=== PATIENT | male | born 1945 | race Caucasian/White ===

== ENCOUNTER 2019-07-24 14:19 | Outpatient (CLI) | payer OTHER, SELFPAY ==
[2019-07-24 14:54] LABS: Add Urine Microscopic? YES; Appearance Urine Clear (Clear); Bacteria Urine Trace /hpf; Bilirubin Urine Negative (Negative); Blood Urine Negative (Negative); Calcium Oxalate Crystals Urine Present /hpf; Color Urine Yellow (Yellow); Glucose Urine UA 1+ mg/dL (Negative); Ketones Urine Trace mg/dL (Negative); Leukocyte Esterase Ur Negative LEU/UL (Negative); Mucus Urine Moderate /lpf; Nitrate Urine Negative (Negative); Protein Urine 1+ mg/dL (Negative); Specific Grav Ur 1.026 (1.001-1.035); Squamous Epithelial Cell Urine Few /hpf (Few); Urobilinogen Urine Negative mg/dL (<2.0)
== END 2019-07-24 14:20 | disposition home or self-care (01) ==
PROVIDERS: PCP Internal Medicine; Visit Provider Internal Medicine
DX: M54.9 Dorsalgia, unspecified (principal)
CPT/HCPCS: 81001; 87086; 87088

== ENCOUNTER 2019-08-26 10:04 | Inpatient (IN) | payer OTHER, SELFPAY ==
[2019-08-26] VITALS (7 sets, daily range): BP systolic 82–126; BP diastolic 50–84; PULSE 92–120; RESP 16–26; TEMP 36.4–36.7; O2SAT 92–100; BMI 21.7
--- NOTE | ~2019-08-26 | CT_ITS ---
EXAMINATION: CT brain wo con DATE: 08/26/2019 11:04 INDICATION: Complaints of weakness and fall. Altered mental status. Confusion. TECHNIQUE: Computed tomography (CT) of the head was performed without intravenous contrast. The dose- length product was 605.33 mGy-cm. The mA was adjusted according to patient size. Iterative reconstruc tion technique was employed. COMPARISON: None FINDINGS: There is a fluid attenuation mass left middle cranial fossa measuring 4.4 x 3.3 cm, consist ent with arachnoid cyst. There is mass effect on the temporal lobe. Mild generalized atrophy. There a re scattered mild periventricular and subcortical white matter changes, most likely related to small vessel ischemic disease (microangiopathy). No acute intracranial hemorrhage, infarction, mass or mass effect. IMPRESSION: 1. No acute intracranial abnormality. 2: Fluid attenuation mass measuring 4.4 x 3.3 cm left middle cranial fossa, consistent with arachnoid cyst. 3: Chronic age-related findings. Reviewed, dictated and finalized at location A. IMPRESSION: 1. No acute intracranial abnormality. 2: Fluid attenuation mass measuring 4.4 x 3.3 cm left middle cranial fossa, con sistent with arachnoid cyst. 3: Chronic age-related findings.
--- NOTE | ~2019-08-26 | XR_ITS ---
XR chest 2V 08/26/2019 11:07 Indication: Status post fall. Weakness. Procedure: 2 view chest Comparison: 09/06/2015 Findings: Bibasilar airspace disease, compatible with pneumonia. Small pleural effusions. No edema or pneumothorax. No acute osseous abnormality. Impression: 1: Bibasilar airspace disease, consistent with pneumonia. Reviewed, dictated and finalized at location A. Impression: 1: Bibasilar airspace disease, consistent with pneumonia.
--- NOTE | ~2019-08-26 | XR_ITS ---
MODIFIED ESOPHAGRAM HISTORY: Dysphagia. TECHNIQUE: Modified barium esophagram was performed on 08/27/2019. I administered fluoroscopy and perfo rmed the exam with speech pathologist. Patient was seated for lateral fluoroscopic imaging for inges tion of thin liquids, pudding, solids and quantified amounts, followed by thin liquids in uncontrolle d amounts. This was recorded on tape. A single fluoroscopic spot image was also recorded. The DAP for this procedure was 0.80 Gycm2. The amount of fluoroscopy time used during this procedure was 1.2 min utes. FINDINGS: Oral stage: Adequate function. Pharyngeal stage: Pharyngeal dysphagia with laryngeal penetration and aspiration below the vocal cord s ineffectual attempted clearance. Cervical/esophageal stage: Adequate function. IMPRESSION: Residual dysphagia with laryngeal penetration and moderate aspiration. Please correlate with speech pathologist findings and specific feeding recommendations. Reviewed, dictated and finalized at location A. IMPRESSION: Residual dysphagia with laryngeal penetration and moderate aspirati on. Please correlate with speech pathologist findings and specific feeding rec ommendations.
--- NOTE | ~2019-08-26 | MR_ITS ---
EXAMINATION: MR brain/brain stem wo/w con DATE: 08/28/2019 08:27 INDICATION: Arachnoid cyst. TECHNIQUE: Magnetic resonance imaging (MRI) of the brain and brainstem was performed without and with 12 mL Multihance intravenous contrast. Sequences included sagittal and axial T1-weighted SE, axial d iffusion-weighted FS SE, axial T2*-weighted GRE, axial T2-weighted FLAIR, and axial T2-weighted FSE. Postcontrast axial, sagittal and coronal T1-weighted SE was obtained. Apparent diffusion coefficient (ADC) maps were created. COMPARISON: Head CT dated 08/26/2019 FINDINGS: There are no areas of restricted diffusion to suggest acute infarction. 3.4 x 3.2 x 2.4 cm arachnoid cyst in the left middle cranial fossa which exerts mass effect upon the left temporal lobe. The fluid in the cyst follows CSF signal. No intracranial hemorrhage or other abnormal intracranial mass lesio n. There are scattered areas of nonspecific increased T2-weighted signal intensity in the cerebral wh ite matter, predominantly involving the deep and periventricular white matter. There are no intrapare nchymal signal abnormalities seen on the other pulse sequences. Symmetric prominence of the sulci and ventricles consistent with mild age-appropriate diffuse cerebral volume loss. There are no abnormal extra-axial fluid collections. Flow voids are seen in the cerebral arteries on the T2-weighted sequen siddhartha consistent with their expected patency. Small right mastoid effusion. Changes of bilateral intrao cular lens replacement. Visualized orbits and soft tissues are unremarkable. There are no areas of a bnormal enhancement on the post contrast images. IMPRESSION: 1. No acute intracranial process. 2. Arachnoid cyst in the left middle cranial fossa. 2. Age-related changes including mild diffuse volume loss and mild periventricular white matter T2 hy perintensity consistent with chronic small vessel ischemic disease. Reviewed, dictated and finalized at location A. IMPRESSION: 1. No acute intracranial process. 2. Arachnoid cyst in the left middle cranial fossa. 2. Age-related changes including mild diffuse volume loss and mild periventricu lar white matter T2 hyperintensity consistent with chronic small vessel ischemi c disease.
--- NOTE | ~2019-08-26 | XR_ITS ---
XR chest 1V portable DATE: 08/28/2019 11:04 INDICATION: Oxygen desaturation TECHNIQUE: Portable upright AP views on 08/28/2019 at 1107 hours COMPARISON: 08/26/2019 AP and lateral chest FINDINGS: There are bilateral lower lung infiltrates and/or atelectasis, left greater than right, inc reased since 08/26/2019. Small pleural effusions cannot be excluded. There is mild pulmonary vascular congestion and redistrib ution and mild prominence of the minor fissure, suggesting congestive changes. IMPRESSION: Increased bilateral lower lung atelectasis and/or infiltrate, left greater than right Mild congestive changes since 08/26/2019 Reviewed, dictated and finalized at location A.
--- NOTE | 2019-08-26 10:09 | ECG_ITS ---
Measurements Intervals [place] Rate: 115 P: MO: 0 QRS: -26 QRSD: 162 T: 82 QT: 372 QTc: 515 Interpretive Statements ATRIAL FLUTTER/TACHYCARDIA WITH RAPID VENTRICULAR RESPONSE LEFT BUNDLE BRANCH BLOCK BASELINE WANDER- I, II, AVR ABNORMAL ECG Electronically Signed On 08-26-2019 10:35:06 CDT by Richie Alfonso D.O.
--- NOTE | 2019-08-26 10:30 | ED.WEAKNESS ---
HPI - Weakness General Chief complaint: Weakness Stated complaint: FALL Time Seen by Provider: 08/26/19 10:07 History of Present Illness HPI Narrative: Patient is a 74-year-old male with history of muscular dystrophy who presents to the ER with weakness and a fall. Patient attempted to get out of bed last night and was too weak to stand and fell to the floor striking his head. Unsure if he lost consciousness. Family member did not hear him fall him when they checked on him this morning they found him on the ground. He had been lying there all night. He is alert and oriented x3 but has confusion about details of events and what is been occurring over the last few days which family reports is abnormal. Patient typically has home health is been helping him with moving around and rehab but they have stopped coming and so he is stopped doing rehabilitation. For member has concerns that they may be unable to care for him at home at this point. Patient's physical activity is limited to walking from his bed to a chair. Related Data Home Medications Medication Instructions Recorded Confirmed aspirin 81 mg tablet,delayed 81 mg PO DAILY 03/12/19 release cholecalciferol (vitamin D3) 25 1,000 unit PO DAILY 03/12/19 mcg (1,000 unit) capsule cyanocobalamin (vitamin B-12) 1,000 mcg PO BID cap 03/12/19 1,000 mcg capsule gabapentin 100 mg capsule 200 mg PO TID cap 03/12/19 krill 1 cap PO DAILY 03/12/19 hur-pj-3-czm-pbj-qlwruvnhhufen 300 mg-90 mg-24 mg-50 mg capsule latanoprost 0.005 % eye drops 1 drop EACH EYE QPM 03/12/19 naproxen sodium 220 mg capsule 220 mg PO Q12H 03/12/19 carboxymethylcellulose sodium 08/26/19 [Refresh Tears] dextran 70-hypromellose [GenTeal drp OPHTHALMIC (EYE) 08/26/19 Tears Mild] saw palmetto fruit mg 08/26/19 timolol maleate 08/26/19 vitamins A,C,Z-lbpn-xhllag tablet 08/26/19 [PreserVision AREDS] Allergies Allergy/AdvReac Type Severity Reaction Status Date / Time No Known Allergies Allergy Verified 08/26/19 10:24 Review of Systems Review of Systems: All systems reviewed & are unremarkable except as noted in HPI and below Constitutional: Constitutional: Denies chills, Reports fatigue, Denies fever(s) and Reports weakness ENT: Denies dizziness, Denies nasal congestion and Denies sore throat Cardiovascular: Cardiovascular: Denies chest pain and Denies rapid heart rate Respiratory: Respiratory: Denies chest congestion, Denies cough and Denies dyspnea Gastrointestinal: Gastrointestinal: Denies abdominal pain, Denies nausea and Denies vomiting Musculoskeletal: Musculoskeletal: Reports back pain (Chronic) Integumentary/Breasts: Comments: Abrasions to the knees bilaterally. Neurologic: Reports confusion, Reports dizziness, Reports headache(s), Denies focal weakness and Denies numbness [facility] Past Medical History Medical History (Updated 08/26/19 @ 14:40 by Montrell Chan MD) Biliary stenosis Calculus of gallbladder without cholecystitis without obstruction Hypernatremia Macular degeneration, age related, exudative Mixed hyperlipidemia Myotonic muscular dystrophy Nephrolithiasis Scoliosis of lumbar spine Surgical History Surgical History (Updated 08/26/19 @ 10:36 by Montrell Chan MD) H/O colonoscopy History of esophagogastroduodenoscopy (EGD) Social History Social History (Reviewed 04/28/19 @ 12:53 by Ivy Castillo [facility]) Smoking status: Former smoker Alcohol intake: never Exam Narrative: Exam Narrative: GENERAL: Chronically ill-appearing and frail, and in no acute distress. HEAD: Normocephalic, atraumatic. EYES: PERRL and EOMI. bruising/abrasion around the right periorbital region without tenderness. ENT: Mucous membranes moist. CHEST: Clear to auscultation. No respiratory distress. HEART: Tachycardic and regular. Normal peripheral pulses. ABDOMEN: Soft, nontender, nondistended. EXTREMITIES: Normal range of motion. Normal st
[2019-08-26 10:34] LABS: Basophils Percent Auto 0.6 % (0.2-1.2); Eosinophils Percent Auto 0.4 % (0-4.4); Hematocrit 40.2 % (42.0-52.0); Hemoglobin 12.6 g/dL (14.0-18.0); Immature Granulocyte Absolute 0.02 K/mm3 (0.00-0.031); Immature Granulocyte Percent A 0.3 % (0-0.5); Lymphocytes Absolute Auto 0.71 K/mm3 (0.9-3.2); Lymphocytes Percent Auto 9.8 % (18.3-44.2); Mean Corpuscular HGB Conc 31.3 g/dl (32-36); Mean Corpuscular Hemoglobin 31.3 pg (26-34); Mean Platelet Volume 11.2 fl (7.4-10.4); Monocytes Absolute Auto 0.6 K/mm3 (0.1-0.6); Monocytes Percent Auto 8.1 % (2.6-8.5); Neutrophils Absolute Auto 5.9 K/mm3 (1.3-6.7); Neutrophils Percent Auto 80.8 % (45.5-73.1); Platelet Count Result 158 k/mm3 (150-375); Red Blood Count 4.02 M/mm3 (4.6-6.20); Red Cell Distribution Width 14.1 % (11.5-14.5); White Blood Count 7.3 K/mm3 (4.5-10.0)
[2019-08-26 10:44] LABS: Alanine Aminotransferase 50 U/L (4-50); Albumin Level 3.5 g/dL (3.5-5.1); Alkaline Phosphatase 207 U/L (38-126); Aspartate Amino Transferase 73 U/L (17-59); Bilirubin,Total 0.6 mg/dL (0.2-1.3); Blood Urea Nitrogen 14 mg/dL (9-20); Calcium 9.7 mg/dL (8.4-10.2); Carbon Dioxide 32 mmol/L (22-30); Chloride 110 mmol/L (98-107); Estimated CRCL calculation 80 ml/min; Estimated Glomerular Filt Rate > 60; Glucose 130 mg/dL (75-110); Potassium 4.1 mmol/L (3.4-5.0); Sodium 143 mmol/L (137-145)
--- NOTE | 2019-08-26 10:44 | PC.NURSE ---
Patient is awake, alert, and oriented. He is able to tell me his name, birthday, month, year, current events. He does provide wrong answer when asked for the date, stating 2nd vs 6th. His speech is occasionally slurred but this is reported, by his , to be the patient's norms. She also tells me that the patient has been having increasing weakness and does have a history of muscular dystrophy. Patient agrees with this statement.
[2019-08-26 10:46] LABS: Creatine Kinase 289 U/L (55-170)
[2019-08-26 10:48] LABS: Add Urine Microscopic? YES; Appearance Urine Clear (Clear); Bilirubin Urine Negative (Negative); Blood Urine 1+ (Negative); Calcium Oxalate Crystals Urine Present /hpf; Color Urine Yellow (Yellow); Glucose Urine UA Negative (Negative); Ketones Urine Negative (Negative); Leukocyte Esterase Ur Negative LEU/UL (Negative); Mucus Urine Rare /lpf; Nitrate Urine Negative (Negative); Protein Urine Negative (Negative); RBC Urine 51-75 /hpf (0-2); Squamous Epithelial Cell Urine Rare /hpf (Few); Urobilinogen Urine Negative mg/dL (<2.0); WBC Urine 0-3 /hpf
[2019-08-26 12:18] LABS: Lactic Acid Reflex 2.9 mmol/L (0.7-2.1)
[2019-08-26] MEDS: SODIUM CHLORIDE 0.9% IV 1,000 ML 999 ML IV CONT (12:25)
--- NOTE | 2019-08-26 14:14 | ADMGEN ---
This patient, Domenic Min, was admitted to Medical Room 258-01. Patient/family oriented to hospital policies and general routines including ID bracelet, bed and alarms, visiting hours, pain management, procedures, bathroom and other care routines, personal items, smoking policy, room service/diet, and visiting hours. Valuables list has been completed. Information on how to activate the Rapid Response Team has been discussed. Patient/Family are encouraged to report perceived risks to care and to ask questions if they do not understand what they are told or what they should do.
--- NOTE | 2019-08-26 14:45 | PC.NURSE ---
When patient was taken up to the floor I spoke with the admitting RN and notified her that the patient had been trying to get up from bed and that this was new behavior. His also asked me to reiterate to the admitting RN that the patient requires a pureed diet which was also done at that time.
[2019-08-26 15:05] LABS: Reflex Lactic Acid Yes or No Add Lactic
[2019-08-26 15:50] LABS: Lactic Acid 2.3 mmol/L (0.7-2.1)
--- NOTE | 2019-08-26 17:22 | ECG_ITS ---
Measurements Intervals [place] Rate: 90 P: 70 RI: 234 QRS: -32 QRSD: 167 T: 88 QT: 427 QTc: 524 Interpretive Statements SINUS RHYTHM WITH FIRST DEGREE AV BLOCK LEFT AXIS DEVIATION LEFT BUNDLE BRANCH BLOCK ABNORMAL ECG Electronically Signed On 08-27-2019 6:58:32 CDT by Richie Alfonso D.O.
[2019-08-26] MEDS: SODIUM CHLORIDE 0.9% IV 1,000 ML 125 ML IV CONT (17:34)
[2019-08-26 17:51] LABS: Creatine Kinase 441 U/L (55-170)
[2019-08-26 17:54] LABS: Hemoglobin A1C 5.5 % (<5.7)
--- NOTE | 2019-08-26 18:00 | PM.IMHP ---
H&P: HPI History of Present Illness Chief complaint: Weakness, fall last evening. Narrative: Domenic Min is a 74-year-old male with muscular dystrophy who presented to the emergency department earlier today via EMS from home for evaluation of generalized weakness and after a fall last night. He is a fair historian but at times it is difficult to understand what he is saying due to slurred speech, which he and his report as chronic and unchanged. He was diagnosed with muscular dystrophy at the age of 60 and has gotten progressively more weak since that time. He ambulates with a walker and now eats a soft diet due to occasional issues with swallowing. Over the past several days he has not felt well, and reports subjective fever, cough productive of yellow sputum, sinus congestion, and mild anterior chest discomfort. Last evening he got out of bed for unclear reasons, began to feel dizzy, and fell forward, striking his head on a nearby cabinet. He is uncertain if he had any loss of consciousness in the fall. He was unable to get himself up, and was unable to yell loud enough for his to hear him, thus he slept on the floor overnight. He was not able to get himself up today even with the help of his , and EMS was summoned. He was found to have bilateral pneumonia and with further questioning he mentions that his had similar symptoms several weeks ago. Given his muscular dystrophy, he has not left the house since June, however he tells me that his frequently goes outside of the home ?because she goes crazy if she stays there.? To his knowledge, neither of them have been exposed to anyone positive for COVID-19. He has not had a documented fever. He denies headache. He denies dysphagia and concerns for aspiration, however her his is concerned that he may be aspirating somewhat. He denies issues with seasonal rhinitis. He has not had exertional chest pain. He denies pleuritic pain and significant shortness of breath. No nausea, vomiting, or diarrhea. Review of Systems Review of Systems: Narrative: 12 systems were reviewed with pertinent positives and negatives as per HPI. He denies exertional chest pain, shortness of breath, pleuritic pain, and palpitations. Weight has remained stable. He denies headache. He has occasional constipation. No dysuria. Except as documented, all other systems were reviewed and are negative. [facility] Past Medical History Medical History (Updated 08/26/19 @ 21:40 by Bridgett Rice PA-C) Arachnoid cyst Fluid attenuation mass measuring 4.4 x 3.3 cm left middle cranial fossa, consistent with arachnoid cyst on brain CT 08/26/2019. Calculus of gallbladder without cholecystitis without obstruction Glaucoma Macular degeneration, age related, exudative Mixed hyperlipidemia Myotonic muscular dystrophy Nephrolithiasis Scoliosis of lumbar spine Surgical History Surgical History (Updated 08/26/19 @ 21:25 by Bridgett Rice PA-C) H/O colonoscopy History of bilateral cataract extraction History of esophagogastroduodenoscopy (EGD) History of partial thyroidectomy Left partial thyroidectomy for benign growth. Family History Family History Mother Family history of rheumatoid arthritis Father Family history of diabetes mellitus in first degree relative Family history of congestive heart failure Patient's father is Grandparent Diabetes mellitus Acute myocardial infarction Other Asthma Family history of cardiovascular disease Hypertension Social History Social History (Updated 08/26/19 @ 21:26 by Bridgett Rice PA-C) Social History: The patient is lives with his in [place]. He designates his , Dawit, as his surrogate decision maker and he wishes to be a full code. He used to smoke cigars and a pipe. He denies alcohol use. He used marijuana recreational many years ago.
[2019-08-26 18:05] LABS: Troponin I 0.089 ng/mL (0.000-0.034)
[2019-08-26] MEDS: OPTI-GEN TAB 1 TABLET PO (18:36)
[2019-08-26] MEDS: CYANOCOBALAMIN 1,000 MCG TABLET 1000 MCG PO (18:36)
[2019-08-26] MEDS: GABAPENTIN 300 MG CAPSULE PO (18:36)
[2019-08-26] MEDS: CHOLESTYRAMINE (W/ SUGAR) 4 GM POWD.PACK PO (18:37)
[2019-08-26] MEDS: LORATADINE 10 MG TABLET PO (20:21)
[2019-08-26] MEDS: FLUTICASONE PROPIONATE 0.05% NA SPR 16 GM BTL (*BKC) 1 SPRAY NASAL (20:21)
[2019-08-26] MEDS: ASPIRIN 81 MG ENTERIC TABLET PO (20:21)
[2019-08-26] MEDS: LATANOPROST 0.005% OP SOLN 2.5 ML BTL 1 DROP EACH EYE (20:21)
[2019-08-26 21:10] LABS: Troponin I 0.082 ng/mL (0.000-0.034)
--- NOTE | 2019-08-26 23:13 | PC.NURSE ---
Addendum entered by Lola Castillo RN 08/26/19 23:17: Pt transfered at 2230 Original Note: Report given to [place] on 3rd med surg room 333. notified of room change. Pt alert and oriented belongings sent with patient.
[2019-08-26 23:21] LABS: Creatine Kinase 502 U/L (55-170); Magnesium 2.4 mg/dL (1.6-2.3)
[2019-08-26 23:36] LABS: Iron 72 ug/dL (49-181)
[2019-08-26 23:38] LABS: Troponin I 0.079 ng/mL (0.000-0.034)
[2019-08-26 23:45] LABS: Percent Iron Saturation 23 % (20-50)
[2019-08-27] VITALS (12 sets, daily range): BP systolic 101–153; BP diastolic 47–77; PULSE 76–94; RESP 16–24; TEMP 36.6–37.1; O2SAT 92–96
[2019-08-27 00:07] LABS: Hepatitis B Surface Antigen Negative (Negative)
[2019-08-27 00:12] LABS: HAV RESULT Negative (Negative); Hepatitis B Core IgM Result Negative (Negative)
[2019-08-27 00:14] LABS: Thyroid Stimulating Hormone Reflex 0.431 uIU/mL (0.465-4.68)
[2019-08-27 00:24] LABS: Hepatitis C Virus Antibody Negative (Negative)
[2019-08-27 00:32] LABS: Folic Acid > 20.0 ng/mL (2.76->20); Vitamin B12 > 1000.0 pg/mL (239-931)
[2019-08-27 01:02] LABS: Free T4 Free Thyroxine Reflex 0.85 ng/dL (0.78-2.19)
--- NOTE | 2019-08-27 01:21 | PC.NURSE ---
Pt arrived to 333 via bed. Report received, oriented patient to room, sitter present at bedside. Verbalizes understanding of instructions given.
[2019-08-27 01:43] LABS: Total Triiodothyronine (T3) 1.83 NG/ML (0.97-1.69)
[2019-08-27] MEDS: SODIUM CHLORIDE 0.9% IV 1,000 ML 75 ML IV CONT (02:35)
[2019-08-27 06:26] LABS: Basophils Percent Auto 0.4 % (0.2-1.2); Eosinophils Absolute Auto 0.1 K/mm3 (0-0.3); Hematocrit 34.9 % (42.0-52.0); Hemoglobin 10.8 g/dL (14.0-18.0); Immature Granulocyte Absolute 0.02 K/mm3 (0.00-0.031); Immature Granulocyte Percent A 0.4 % (0-0.5); Lymphocytes Absolute Auto 0.82 K/mm3 (0.9-3.2); Lymphocytes Percent Auto 16.9 % (18.3-44.2); Mean Corpuscular HGB Conc 30.9 g/dl (32-36); Mean Corpuscular Hemoglobin 31.3 pg (26-34); Mean Corpuscular Volume 101.2 fl (80-100); Mean Platelet Volume 11.7 fl (7.4-10.4); Monocytes Absolute Auto 0.4 K/mm3 (0.1-0.6); Monocytes Percent Auto 9.1 % (2.6-8.5); Neutrophils Absolute Auto 3.5 K/mm3 (1.3-6.7); Neutrophils Percent Auto 72.2 % (45.5-73.1); Platelet Count Result 120 k/mm3 (150-375); Red Blood Count 3.45 M/mm3 (4.6-6.20); Red Cell Distribution Width 14.5 % (11.5-14.5); White Blood Count 4.8 K/mm3 (4.5-10.0)
[2019-08-27 06:34] LABS: Alanine Aminotransferase 47 U/L (4-50); Albumin Level 2.9 g/dL (3.5-5.1); Alkaline Phosphatase 167 U/L (38-126); Aspartate Amino Transferase 57 U/L (17-59); Bilirubin,Total 0.4 mg/dL (0.2-1.3); Blood Urea Nitrogen 12 mg/dL (9-20); Calcium 8.5 mg/dL (8.4-10.2); Carbon Dioxide 30 mmol/L (22-30); Chloride 115 mmol/L (98-107); Estimated CRCL calculation 79 ml/min; Estimated Glomerular Filt Rate > 60; Glucose 96 mg/dL (75-110); Potassium 3.7 mmol/L (3.4-5.0); Sodium 145 mmol/L (137-145)
--- NOTE | 2019-08-27 10:06 | PCSTNOTE ---
Please refer to the Modified Barium Swallow Evaluation in the EMR.
[2019-08-27] MEDS: GABAPENTIN 300 MG CAPSULE PO ×2 (10:22→16:50)
[2019-08-27] MEDS: CYANOCOBALAMIN 1,000 MCG TABLET 1000 MCG PO ×2 (10:23→16:52)
[2019-08-27] MEDS: FOLIC ACID 1 MG TABLET PO (10:24)
[2019-08-27] MEDS: OPTI-GEN TAB 1 TABLET PO ×2 (10:24→16:52)
[2019-08-27] MEDS: CHOLECALCIFEROL 1,000 UNIT TABLET 1000 UNITS PO (10:24)
[2019-08-27] MEDS: DOCUSATE SODIUM 100 MG CAPSULE PO (10:24)
[2019-08-27 14:02] LABS: SARS-CoV-2 RNA PCR Negative
--- NOTE | 2019-08-27 16:23 | PM.IMPN ---
Progress Note: A&P Assessment and Plan (1) Bilateral pneumonia: Code(s): J18.9 - Pneumonia, unspecified organism Status: Acute Assessment and Plan: The patient presented with cough productive of yellow sputum and subjective fever. CXR revealed bilateral opacities compatible with pneumonia. His also reported similar symptoms recently. WBC at presentation was 7,300 with neutrophil predominance and is 4,800 today. He is stable on room air. Sputum culture is pending. Urine legionella and pneumococcal antigens are pending. Preliminary blood cultures reveal NGTD. SARS-COV-2 PCR testing is negative. He underwent modified barium swallow study today which revealed mild aspiration with reduced laryngeal closure and elevation, poor tongue base retraction, and poor anterior and posterior wall movement. He has no other concerns today. Continue empiric IV ceftriaxone and doxycycline Will add IV metronidazole for better anaerobic coverage due to the possibility of aspiration pneumonia Patient is now NPO due to his speech therapy evaluation and will continue speech therapy Monitor hemodynamics and WBC Await urinary antigens and sputum culture (2) Normocytic anemia: Code(s): D64.9 - Anemia, unspecified Status: Acute Assessment and Plan: Hb at admission was 12.6 and Hct 40.2. Hb today is 10.8 and Hct is 34.9. I suspect that this drop is dilutional. MCV is elevated at 101.2. Iron studies were WNL. Vitamin B12 and folate are sufficient. Continue to monitor Transfuse PRN Hb <7 (3) Elevated creatine kinase: Code(s): R74.8 - Abnormal levels of other serum enzymes Status: Acute Assessment and Plan: CK was mildly elevated at admission at 289 and increased to 502. This is likely due to mild rhabdomyolysis since he was lying on the floor all night after his fall. Continue IV fluid hydration Continue to trend CK (4) Elevated troponin: Code(s): R79.89 - Other specified abnormal findings of blood chemistry Status: Acute Assessment and Plan: The patient reported mild chest discomfort yesterday on presentation to the ED. He denies chest pain today. He denies dyspnea at rest and with exertion. Telemetry was reviewed from 08/27/19 and reveals sinus rhythm with occasional PVCs. He does have a first degree AV block and chronic left bundle branch block, present on EKG from 08/25/15. Echocardiogram was ordered and is pending. Await echo Continue to monitor for new symptoms (5) Transaminasemia: Code(s): R74.0 - Nonspecific elevation of levels of transaminase and lactic acid dehydrogenase [LDH] Status: Acute Assessment and Plan: Alkaline phosphatase is mildly elevated at 167. This may be due to mild rhabdomyolysis. Hepatitis panel was negative. He has no abdominal pain, nausea, or vomiting. Continue to monitor Should his numbers continue to increase, would consider right upper quadrant ultrasound. (6) Myotonic muscular dystrophy: Code(s): G71.11 - Myotonic muscular dystrophy Status: Acute Assessment and Plan: The patient has a history of myotonic muscular dystrophy and is becoming progressively weaker per his . He is established with Dr. Tyson at [facility]. PT/OT is on board He will likely need rehab as there are concerns that he can no longer care for himself at home I will reach out to Dr. Tyson tomorrow regarding his dysphagia (7) COVID-19 ruled out: Code(s): Z03.818 - Encounter for observation for suspected exposure to other biological agents ruled out Status: Acute Assessment and Plan: SARS-COV-2 PCR testing was performed and is negative. Discontinue isolation precautions (8) Oropharyngeal dysphagia: Code(s): R13.12 - Dysphagia, oropharyngeal phase Status: Acute Assessment and Plan: The patient underwent speech therapy evaluation today and
[2019-08-27 18:18] LABS: Creatine Kinase 1057 U/L (55-170)
[2019-08-27] MEDS: TIMOLOL MALEATE 0.25% OP SOLN 5 ML BOTTLE 1 DROP LEFT EYE (19:42)
--- NOTE | 2019-08-27 21:35 | ECHO_ITS ---
Patient Info Name: Domenic Min Age: 74 years : 1945 Gender: Male Ht: 67 in Wt: 138 lbs BSA: 1.72 m2 HR: 76 bpm BP: 101 / 47 mmHg Heart Rhythm: Sinus Rhythm Technical Quality: Good Exam Date: 08/27/2019 4:18 PM Exam Location: [facility] Pul[facility] Exam Room: [facility] Patient Status: Inpatient Admit Date: 08/26/2019 Staff Ordering Physician: Bridgett Rice PA-C Food Dehydrator Operator: Charito Bone RDCS Attending Provider: Krista Zarate PA-C Referring Physician: Krystal SANDOVAL; Exam Type: CA echo doppler color flow Study Info Indications - chest pain Complete two-dimensional, color flow and Doppler transthoracic echocardiogram is performed. Summary 1. Left ventricular chamber dimension is mildly enlarged. 2. Left ventricular systolic function is mildly reduced, estimated at 40-45%. 3. Left ventricular septal wall motion is abnormal with septal motion related to bundle branch block. 4. Left atrial chamber dimension is mildly enlarged. 5. The aortic valve is probable trileaflet. 6. There is mild aortic valve regurgitation. Left Ventricle Left ventricular chamber dimension is mildly enlarged. Left ventricular systolic function is mildly reduced, estimated at 40-45%. Left ventricular septal wall motion is abnormal with septal motion related to bundle branch block. The left ventricular diastolic function is normal. Right Ventricle Right ventricular chamber dimension is normal. Left Atria Left atrial chamber dimension is mildly enlarged. Right Atria Right atrial chamber dimension is normal. Aortic Valve The aortic valve is probable trileaflet. There is mild aortic valve sclerosis. There is no aortic valve stenosis. There is mild aortic valve regurgitation. Pulmonic Valve The pulmonic valve is not well visualized. Mitral Valve The mitral valve has normal leaflets and calcified annulus. Tricuspid Valve The tricuspid valve leaflets are not well visualized. Pericardium/Pleural The pericardium appears normal. Aorta The aortic root size at the sinus of Valsalva is normal. Left Ventricular Outflow Tract Name Value Normal LVOT 2D LVOT Diameter 2.0 cm LVOT Doppler LVOT Peak Gradient 4 mmHg LVOT Mean Gradient 3 mmHg LVOT VTI 17 cm LVOT VTI/AV VTI Ratio 0.9 LVOT Stroke Volume 55 ml LVOT CO 14.7 l/min LVOT CI 8.6 l/min/m2 Pulmonic Valve Name Value Normal PV Doppler PV Peak Gradient 2 mmHg Mitral Valve Name Value Normal
[2019-08-27] MEDS: SODIUM CHLORIDE 0.9% IV 1,000 ML 125 ML IV CONT (21:49)
[2019-08-27] MEDS: LORATADINE 10 MG TABLET PO (21:58)
[2019-08-27] MEDS: LATANOPROST 0.005% OP SOLN 2.5 ML BTL 1 DROP EACH EYE (21:58)
[2019-08-27] MEDS: FLUTICASONE PROPIONATE 0.05% NA SPR 16 GM BTL (*BKC) 1 SPRAY NASAL (21:58)
--- NOTE | 2019-08-27 23:23 | PM.EVENT ---
Event Note Event Note Event Note: I was alerted that the patient has had a newly diagnosed arachnoid cyst on brain CT yesterday and continues to be symptomatic with increased confusion and possible seizure. I have called [facility] and discussed the case at length with their Neurosurgery fellow who advises at this time that we obtain an MRI of brain in am and send the films to Neurosurgery. The [facility] neurosurgery fellow does not advise that we urgently transfer the patient to [facility]. We will continue to monitor the patient closely.
[2019-08-27] MEDS: metroNIDAZOLE 500 MG/ISO 100ML 500 MG/100 ML BAG 100 MG IVPB (23:55)
[2019-08-28] VITALS (15 sets, daily range): BP systolic 109–146; BP diastolic 71–85; PULSE 80–122; RESP 14–20; TEMP 36.1–36.6; O2SAT 90–94; BMI 21.7
[2019-08-28] MEDS: metroNIDAZOLE 500 MG/ISO 100ML 500 MG/100 ML BAG 100 MG IVPB ×2 (05:29→14:58)
[2019-08-28 05:36] LABS: Basophils Absolute Auto 0.1 K/mm3 (0.0-0.1); Basophils Percent Auto 0.5 % (0.2-1.2); Eosinophils Absolute Auto 0.1 K/mm3 (0-0.3); Eosinophils Percent Auto 0.6 % (0-4.4); Hematocrit 39.4 % (42.0-52.0); Immature Granulocyte Absolute 0.12 K/mm3 (0.00-0.031); Immature Granulocyte Percent A 0.8 % (0-0.5); Lymphocytes Percent Auto 9.9 % (18.3-44.2); Mean Corpuscular HGB Conc 30.5 g/dl (32-36); Mean Corpuscular Hemoglobin 31.2 pg (26-34); Mean Corpuscular Volume 102.3 fl (80-100); Mean Platelet Volume 11.3 fl (7.4-10.4); Monocytes Absolute Auto 1.1 K/mm3 (0.1-0.6); Monocytes Percent Auto 7.4 % (2.6-8.5); Neutrophils Absolute Auto 12.3 K/mm3 (1.3-6.7); Neutrophils Percent Auto 80.8 % (45.5-73.1); Platelet Count Result 205 k/mm3 (150-375); Red Blood Count 3.85 M/mm3 (4.6-6.20); Red Cell Distribution Width 14.6 % (11.5-14.5); White Blood Count 15.2 K/mm3 (4.5-10.0)
--- NOTE | 2019-08-28 07:43 | PC.NURSE ---
Spoke to patient and for MRI consent. was able verify all the information needed for MRI screen.
[2019-08-28] MEDS: TIMOLOL MALEATE 0.25% OP SOLN 5 ML BOTTLE 1 DROP LEFT EYE (09:56)
--- NOTE | 2019-08-28 13:08 | PCNFU ---
Nutrition Follow-Up Complete: Swallowing Diffuculities are related to Dysphagia as evidenced by failed MBS Goal: meet estimated nutritional needs Limited progress towards goal. Will continue current goal. Pt current nutrition is NPO. Nutrition recommendation:Enteral or Parental Nutrition Last recorded weight is 62.9 kg. Bowel Motility:No BM reported. Labs Reviewed:Hct 39.4,Hgb 12.0 Meds Noted:Dextrose 100 mls @ 100 ml/hr,Flagyl Additional Notes: Spoke with nursing today on telephone due to COVID 19 precautions. Patient is currently NPO with plans for transfer to [facility] when bed is ready. Patient had a MBS on 08/26-recommending non oral feedings. If patient does not transfer PPN recommendations: Clinimix E 4.25%/5 at 60 ml/hr with 250 ml of 20% Lipid Emulsion which will provide 990 kcals and 61 gms protein meeting 62% of kcal needs. Tube feeding recommendations: Jevity 1.2 start at 25 ml/hr advance by 10 ml/hr q 4 hours to goal rate of 65 ml/hr which will provide 1716 kcals/79gms protein/1154 ml water, 100% of kcal and protein needs. Monitoring:Will monitor every 3 days.
[2019-08-28 13:39] LABS: Lactic Acid Reflex 1.1 mmol/L (0.7-2.1)
[2019-08-28 13:41] LABS: Alanine Aminotransferase 56 U/L (4-50); Albumin Level 3.4 g/dL (3.5-5.1); Alkaline Phosphatase 185 U/L (38-126); Aspartate Amino Transferase 82 U/L (17-59); Bilirubin,Total 0.5 mg/dL (0.2-1.3); Blood Urea Nitrogen 15 mg/dL (9-20); Calcium 8.6 mg/dL (8.4-10.2); Carbon Dioxide 25 mmol/L (22-30); Chloride 116 mmol/L (98-107); Creatine Kinase 863 U/L (55-170); Estimated CRCL calculation 93 ml/min; Estimated Glomerular Filt Rate > 60; Glucose 121 mg/dL (75-110); Magnesium 2.2 mg/dL (1.6-2.3); Potassium 3.9 mmol/L (3.4-5.0); Sodium 148 mmol/L (137-145)
[2019-08-28] MEDS: IPRATROPIUM BR 0.02% INH SOLN 0.5 MG/2.5 ML VIAL INHALATION ×2 (13:54→16:39)
[2019-08-28] MEDS: ALBUTEROL SULFATE NEB 2.5 MG/0.5 ML INH INHALATION ×2 (13:54→16:39)
[2019-08-28] MEDS: FUROSEMIDE INJ 40 MG/4 ML VIAL 20 MG IV PUSH (15:00)
--- NOTE | 2019-08-28 15:32 | PM.TDS ---
Transfer Discharge Sum: Prov Provider Date of admission: 08/28/19 11:54 Primary care physician: Anatoly Anne DO Admitting clinician: Charisse Torres MD Consults: 08/27/19 Consult to Physician Routine Comment: Consulting Provider: Be Handy call or contact centre team leader/MD group to consult: Neurology Myotonic muscular dystrophy with dysphagia/aspiration Arachnoid cyst with mass effect on temporal lobe Reason for consultation: As above Has provider been notified: Yes DS: Diagnosis Admitting Diagnosis Admitting Diagnosis: Pneumonia, unspecified organism Discharge Diagnosis (1) Fall from ground level: Code(s): W18.30XA - Fall on same level, unspecified, initial encounter Status: Acute Assessment and Plan: The patient had a ground level fall. Exact details are unclear per the patient and his as she did not witness the event but he was getting up to use the restroom, felt dizzy, and fell from the side of his bed onto the carpet. He does not know if he lost consciousness. His tongue has bruising as well as superficial abrasions that could be rug jacques. He has no hx of seizures although I am concerned that he may have had a seizure. His lactic acid was elevated at 2.9 presentation. Lactic today is 1.1. He does have an arachnoid cyst in the left middle cranial fossa with mass effect on the left temporal lobe which could possibly provoke a seizure and I have discussed the case with neurosurgery at [facility]. They will accept the patient in consultation for evaluation. EEG is pending Continue seizure precautions Neurology is on board and has recommended we begin keppra which will be given IV since the patient is NPO due to dyphagia due to aspiration risks (2) Sepsis: Code(s): A41.9 - Sepsis, unspecified organism Status: Acute Assessment and Plan: The patient met SIRS criteria at presentation with tachycardia and tachypnea. Suspected source is PNA. Lactic acid was elevated at 2.9 initially. Repeat lactic is 1.1. Blood pressure responded well to fluids. Blood cultures were obtained and reveal NGTD. (3) Bilateral pneumonia: Code(s): J18.9 - Pneumonia, unspecified organism Status: Acute Assessment and Plan: The patient presented with cough productive of yellow sputum and subjective fever. CXR revealed bilateral opacities compatible with pneumonia. His also reported similar symptoms recently. WBC at presentation was 7,300 with neutrophil predominance. WBC has increased to 15,200. Sputum culture is pending. Urine legionella and pneumococcal antigens are pending. Preliminary blood cultures reveal NGTD. SARS-COV-2 PCR testing is negative. He underwent modified barium swallow 08/28/19 which revealed residual dysphagia with laryngeal penetration and moderate aspiration. He is requiring 2L NC today. CXR was repeated and revealed increased bilateral lower lung infiltrate and mild congestive changes. Continue empiric IV ceftriaxone and doxycycline for CAP and add metronidazole due to concerns for aspiration pneumonia Continue bronchodilators Patient is NPO at this time due to his speech therapy evaluation and will continue speech therapy Monitor hemodynamics and WBC Await urinary antigens and sputum culture (4) Arachnoid cyst: Code(s): G93.0 - Cerebral cysts Status: Acute Assessment and Plan: CT brain revealed 4.4x3.3 fluid attenuating mass in the left middle cranial fossa with mass effect on the temporal lobe. Discuss[facility] who [facility] the patient in consultation for evaluation. They expressed concern for possible normal pressure hydrocephalus as well which they will evaluate further. (5) Acute respiratory failure with hypoxia: Code(s): J96.01 - Acute respiratory failure with hypoxia Status: Acute Assessment and Plan: The patient is requiring
--- NOTE | 2019-08-28 15:41 | CONS_ITS ---
DATE OF CONSULTATION: 08/28/2019 HISTORY OF PRESENT ILLNESS: A 74-year-old right-handed male has been admitted to [facility] through the emergency room where he was brought by the EMS for the complaint of generalized weakness subsequent to a fall at night. As per the information available, he has the ongoing diagnosis of muscular dystrophy, but has been progressively getting worse. The diagnosis was made around the age of 60. He usually ambulates with a walker, eats soft diet with some difficulties in swallowing. Over these last several days, he has not felt well, but though he did not report any fever, cough, or any sinus congestion. Evening before admission, he got out of bed, felt dizzy, fell forward striking his head on a nearby cabinet. He did not become unconscious, but he was unable to get himself up, was unable to yell loud enough for his to hear him, thus he slept on the floor overnight. He was unable to get up next day also that is the day of admission when the EMS was called to the house. On initial evaluation in the emergency room, he was found to have bilateral pneumonia and with further questioning it was reported that he had the similar symptoms several weeks ago also. He has not left the house since June. His usually goes out of the house. None of them have been exposed to any positive patient for the COVID-19. He has had no fever. His was concerned that he might be aspirating, though he was not himself. He did not complain any chest discomfort. He was diagnosed to have muscular dystrophy at the age of 60 and since that time he has been progressively getting worse. It was documented that he has history of fluid attenuated hortencia that is arachnoid cyst 4.4 x 3.3 cm left middle cranial fossa documented on the CT scan this time on 08/26/2019 as well in addition to the calculus of gallbladder without cholecystitis, glaucoma, hyperlipidemia, myotonic muscular dystrophy, nephrolithiasis and scoliosis of the lumbar spine. In the past, he has undergone colonoscopy, bilateral cataract extraction, esophagogastroduodenoscopy with partial thyroidectomy in the past for benign growth. Family history is positive for rheumatoid arthritis, diabetes mellitus, congestive heart failure. He himself was not clear-cut about the other family members having muscular dystrophy, but he said there were some. SOCIAL HISTORY: He is a former smoker, never drinker, former substance user that is marijuana. MEDICATIONS: At the time of admission, his medications include: 1. Aspirin 81 mg daily. 2. Cholecalciferol 1000 units daily. 3. Cyanocobalamin B12 1000 mg twice a day. 4. Gabapentin 300 t.i.d. 5. Latanoprost 1 drop in each eye. 6. Naproxen 220 q.12 hours. 7. Cholestyramine 4 g p.o. b.i.d. 8. Folic acid 1 mg daily. 9. Artificial tear. 10. Refresh tears. 11. Cetirizine 10 mg h.s. 12. Docusate sodium 100 mg daily. 13. Nasal spray. 14. Timolol 1 drop left eye. 15. Vitamin B-S-J-zinc-copper. ALLERGIES: HE IS NOT ALLERGIC TO ANY MEDICATION. PHYSICAL EXAMINATION: VITAL SIGNS: At the time of initial evaluation, he was found to be afebrile with blood pressure of 82/71, which has come up to 110/50, respirations 21, pulse ox 97%. GENERAL: On examination, he is awake, alert, obviously looking weak, having difficulties in communication because of low volume, but otherwise he is coherent, understands everything very well and able to express himself. He is obviously thin. HEENT: Eyes are somewhat droopy. Right eye is with conjunctival injection. Head is normocephalic with temporal hollowing. NECK: Supple with no cervical bruits. No thyromegaly. No lymphadenopathy. HEART: Regular. LUNGS: Decreased breath sounds and rhonchi. NEUROLOGIC: Examination revealed him to be deneen
[2019-08-28] MEDS: levETIRAcetam 500MG/NACL 100ML 500 MG/100 ML BAG 400 MG IVPB (15:54)
[2019-08-29 10:53] LABS: Pneumococcal Antigen Urine Not Detected (Not Detected)
--- NOTE | 2019-08-29 22:40 | PC.NURSE ---
After review of notes Trop results time and MD notification updates completed.
[2019-08-30 16:19] LABS: Legionella pneumophila Ag Ur Not Detected (Not Detected)
--- NOTE | 2019-09-02 08:40 | PC.NURSE ---
Blood cx are negative.
== END 2019-08-28 17:22 | disposition short-term general hospital (02) | DRG 871 ==
LOC: ANHED 10:31 → ANH2MED 13:24 → ANH3MEDSUR 22:38
PROVIDERS: Physician Assistant; Admitting Provider Family Medicine; Emergency Provider Emergency Medicine; PCP Internal Medicine; Visit Provider Internal Medicine
DX: A41.9 Sepsis, unspecified organism (principal); J18.9 Pneumonia, unspecified organism; J96.01 Acute respiratory failure with hypoxia; G71.11 Myotonic muscular dystrophy; M41.86 Other forms of scoliosis, lumbar region; G93.0 Cerebral cysts; Z03.818 Encounter for observation for suspected exposure to other biological agents ruled out; R13.12 Dysphagia, oropharyngeal phase; D64.9 Anemia, unspecified; E78.5 Hyperlipidemia, unspecified; R74.8 Abnormal levels of other serum enzymes; R74.0 Nonspecific elevation of levels of transaminase and lactic acid dehydrogenase [LDH]; R79.89 Other specified abnormal findings of blood chemistry; H35.3290 Exudative age-related macular degeneration, unspecified eye, stage unspecified; H40.9 Unspecified glaucoma; E89.0 Postprocedural hypothyroidism; W18.30XA Fall on same level, unspecified, initial encounter; Z79.82 Long term (current) use of aspirin; Z79.899 Other long term (current) drug therapy; Z87.891 Personal history of nicotine dependence; Z98.41 Cataract extraction status, right eye; Z98.42 Cataract extraction status, left eye
CPT/HCPCS: 36415; 70450; 70553; 71045; 71046; 80053; 80074; 81001; 82550; 82607; 82728; 82746; 83036; 83540; 83550; 83605; 83735; 84100; 84439; 84443; 84480; 84484; 85025; 87040; 87449; 87635; 87899; 92526; 92611; 93005; 93306; 94640; 94667; 94668; 96365; 96367; 97110; 97162; 97165; 97530; 99285; A9270; A9577; J0456; J0696; J1940; J1953; J7030; U0003

== ENCOUNTER 2019-10-22 14:08 | Observation (INO) | payer OTHER, SELFPAY ==
--- NOTE | ~2019-10-22 | XR_ITS ---
XR abdomen/kub 1V 10/22/2019 16:19 Indication: Constipation. Left back pain. Procedure: KUB Comparison: CT dated 05/13/2014 Findings: There are gallstones. There are right renal stones. Bowel gas pattern nonobstructive. Moder ate colonic fecal loading. There are pelvic phleboliths. There is levoscoliosis. Impression: 1: Right nephrolithiasis. 2: Cholelithiasis. Reviewed, dictated and finalized at location A. Impression: 1: Right nephrolithiasis. 2: Cholelithiasis.
--- NOTE | ~2019-10-22 | XR_ITS ---
EXAMINATION: XR chest 2V EXAM DATE: 10/22/2019 15:17 INDICATION: Low blood sugar. Weakness. TECHNIQUE: Frontal and lateral projections of the chest obtained and reviewed. Comparison is made to prior examination from 08/28/2019. FINDINGS: Improvement in previously seen bibasilar airspace disease with some persistent left basila r atelectasis suspected. Small pleural effusions versus chronic pleural blunting. Right midlung zone granuloma. No pneumothorax. Cardiomediastinal silhouette is normal. There are no osseous abnormalitie s identified. IMPRESSION: 1. Left basilar segmental or subsegmental atelectasis. 2. Pleural blunting, possible small pleural effusions. Reviewed, dictated and finalized at location B.
[2019-10-22 14:15] VITALS: BP 101/61; PULSE 71; RESP 20; TEMP 36.8; O2SAT 97
--- NOTE | 2019-10-22 14:18 | ECG_ITS ---
Measurements Intervals [place] Rate: 67 P: 28 PA: 241 QRS: -22 QRSD: 171 T: 82 QT: 444 QTc: 469 Interpretive Statements SINUS RHYTHM WITH FIRST DEGREE AV BLOCK LEFT BUNDLE BRANCH BLOCK ABNORMAL ECG Electronically Signed On 10-22-2019 14:53:51 CDT by Richie Alfonso D.O.
[2019-10-22 14:35] LABS: Basophils Percent Auto 0.6 % (0.2-1.2); Eosinophils Absolute Auto 0.1 K/mm3 (0-0.3); Eosinophils Percent Auto 2.1 % (0-4.4); Hematocrit 38.2 % (42.0-52.0); Hemoglobin 11.8 g/dL (14.0-18.0); Immature Granulocyte Absolute 0.01 K/mm3 (0.00-0.031); Immature Granulocyte Percent A 0.2 % (0-0.5); Lymphocytes Absolute Auto 1.16 K/mm3 (0.9-3.2); Lymphocytes Percent Auto 22.6 % (18.3-44.2); Mean Corpuscular HGB Conc 30.9 g/dl (32-36); Mean Corpuscular Hemoglobin 31.3 pg (26-34); Mean Corpuscular Volume 101.3 fl (80-100); Mean Platelet Volume 11.6 fl (7.4-10.4); Monocytes Absolute Auto 0.5 K/mm3 (0.1-0.6); Neutrophils Absolute Auto 3.4 K/mm3 (1.3-6.7); Neutrophils Percent Auto 65.5 % (45.5-73.1); Platelet Count Result 170 k/mm3 (150-375); Red Blood Count 3.77 M/mm3 (4.6-6.20); Red Cell Distribution Width 14.4 % (11.5-14.5); White Blood Count 5.1 K/mm3 (4.5-10.0)
[2019-10-22 14:47] LABS: Alanine Aminotransferase 50 U/L (4-50); Albumin Level 3.5 g/dL (3.5-5.1); Alkaline Phosphatase 214 U/L (38-126); Aspartate Amino Transferase 48 U/L (17-59); Bilirubin,Total 0.4 mg/dL (0.2-1.3); Blood Urea Nitrogen 21 mg/dL (9-20); Calcium 9.2 mg/dL (8.4-10.2); Carbon Dioxide 28 mmol/L (22-30); Chloride 109 mmol/L (98-107); Estimated CRCL calculation 53 ml/min; Estimated Glomerular Filt Rate > 60; Glucose 119 mg/dL (75-110); Potassium 4.6 mmol/L (3.4-5.0); Sodium 141 mmol/L (137-145)
[2019-10-22 15:29] LABS: Add Urine Microscopic? YES; Appearance Urine Clear (Clear); Bilirubin Urine Negative (Negative); Color Urine Yellow (Yellow); Glucose Urine UA Negative (Negative); Ketones Urine Trace mg/dL (Negative); Leukocyte Esterase Ur 1+ LEU/UL (Negative); Mucus Urine Heavy /lpf; Nitrate Urine Negative (Negative); Protein Urine 1+ mg/dL (Negative); Specific Grav Ur 1.026 (1.001-1.035); Squamous Epithelial Cell Urine Many /hpf (Few); Urobilinogen Urine Negative mg/dL (<2.0); WBC Urine 16-20 /hpf
[2019-10-22 15:32] LABS: Blood Urine Negative (Negative)
[2019-10-22 15:37] VITALS: BP 95/58; PULSE 66
--- NOTE | 2019-10-22 15:41 | ED.WEAKNESS ---
HPI - Weakness General Chief complaint: Weakness Stated complaint: low bp Time Seen by Provider: 10/22/19 15:30 History of Present Illness HPI Narrative: Patient arrives via EMS with his for increasing weakness. He has muscular dystrophy and frequently gets pneumonia. His blood pressures yesterday were in the 50s and 70s. The visiting home nurse was content with pressures in the 70s. The does not know what his blood pressure usually runs. He chokes easily and is on a pur?ed diet. For breakfast he had cream of wheat with mashed banana, and then choked on it while he was trying to swallow and had a coughing episode. He is at high risk for aspiration pneumonia, but says he is not to have a feeding tube. Last time he was hospitalized he was transferred to [facility], and then to [place] for rehab. The was not consulted about the transfer to rehab. She would like him to stay in the [place] area if he needs additional rehab. She thinks that he does. She says she is having a harder time caring for him. He cannot walk and has frequent falls during transfers. He has not passed his bowel in 6 days. says that he is DNR DNI. MD Complaint: generalized weakness Onset (ago): day(s) Related Data Home Medications Medication Instructions Recorded Confirmed aspirin 81 mg tablet,delayed 81 mg PO HS 03/12/19 08/26/19 release cholecalciferol (vitamin D3) 25 1,000 unit PO DAILY 03/12/19 08/26/19 mcg (1,000 unit) capsule cyanocobalamin (vitamin B-12) 1,000 mcg PO BID cap 03/12/19 08/26/19 1,000 mcg capsule krill 1 cap PO HS 03/12/19 08/26/19 [id number] 300 mg-90 mg-24 mg-50 mg capsule naproxen sodium 220 mg capsule 220 mg PO Q12H 03/12/19 08/26/19 artificial tears(hypromellose) 1 drp OPHTHALMIC (EYE) HS 08/26/19 08/26/19 [GenTeal Tears Severe Gel] cetirizine [Zyrtec] 10 mg PO HS 08/26/19 08/26/19 docusate sodium 100 mg PO DAILY 08/26/19 08/26/19 saw palmetto fruit 450 mg PO DAILY 08/26/19 08/26/19 timolol 1 drp LEFTEYE DAILY 08/26/19 08/26/19 gabapentin 100 mg capsule 100 mg PO TID cap 10/20/19 10/20/19 Allergies Allergy/AdvReac Type Severity Reaction Status Date / Time No Known Allergies Allergy Verified 10/22/19 14:48 Review of Systems Review of Systems: Narrative: CONSTITUTIONAL: Denies fever, chills, or sweats. EYES: Denies visual changes, redness, or discharge. ENT: Denies rhinorrhea, congestion, sore throat, or otalgia. CARDIOVASCULAR: Denies chest pain, palpitations, or edema. RESPIRATORY: He had cough and dyspnea during his choking episode. GASTROINTESTINAL: Denies abdominal pain, nausea, vomiting, or diarrhea. GENITOURINARY: Denies dysuria or hematuria. SKIN: Denies rash or itching. MUSCULOSKELETAL: Denies back pain, but has left hip pain. NEUROLOGIC: Denies headache, numbness. . All systems reviewed & are unremarkable except as noted in HPI and below PMFSH Past Medical History Medical History Arachnoid cyst Fluid attenuation mass measuring 4.4 x 3.3 cm left middle cranial fossa, consistent with arachnoid cyst on brain CT 08/26/2019. Calculus of gallbladder without cholecystitis without obstruction Glaucoma Macular degeneration, age related, exudative Mixed hyperlipidemia Myotonic muscular dystrophy Nephrolithiasis Scoliosis of lumbar spine Surgical History Surgical History H/O colonoscopy History of bilateral cataract extraction History of esophagogastroduodenoscopy (EGD) History of partial thyroidectomy Left partial thyroidectomy for benign growth. Social History Social History Social History: The patient is lives with his in [place]. He designates his , Dawit, as his surrogate decision maker and he wishes to be a full code. He used to smoke cigars and a pipe.
[2019-10-22 16:00] VITALS: BP 95/50; PULSE 62; RESP 18; TEMP 36.3; O2SAT 94
[2019-10-22 16:00] LABS: Alveolar/Arterial O2 Gradient 47.2 mmHg; Base Excess ABG 4.3 mEq/l (+/-2.0); Fractional Inspired Oxygen 21 %; HCO3 ABG 29.8 mEq/l (22.0-26.0); Oxygen Content ABG 14.4 %vol (16.0-22.0); Oxyhemoglobin 81.2 % THb (90.0-100.0); PCO2 ABG 48.3 mmHg (35.0-45.0); PO2 FiO2 Ratio Arterial Blood 2.13 %; Total Hemoglobin 12.6 g/dL (12.0-18.0); pH ABG 7.408 (7.350-7.450)
[2019-10-22 16:13] LABS: Modified Allen's Test Pass; Oxygen Saturation ABG 80.5 % (95.0-100.0); PO2 ABG 44.7 mmHg (80.0-100.0); Site Drawn LEFT RADIAL
[2019-10-22 16:14] LABS: Device ROOM AIR
[2019-10-22 16:31] LABS: Lactic Acid 1.1 mmol/L (0.7-2.1)
[2019-10-22 16:44] LABS: NT Pro B Type Natriuretic Pept 251 PG/ML (5-100)
[2019-10-22 17:00] VITALS: BP 101/60; PULSE 67; O2SAT 98
--- NOTE | 2019-10-22 17:09 | ADMGEN ---
This patient, Domenic Min, was admitted to Medical Room 251-01. Patient/family oriented to hospital policies and general routines including ID bracelet, bed and alarms, visiting hours, pain management, procedures, bathroom and other care routines, personal items, smoking policy, room service/diet, and visiting hours. Valuables list has been completed. Information on how to activate the Rapid Response Team has been discussed. Patient/Family are encouraged to report perceived risks to care and to ask questions if they do not understand what they are told or what they should do.
[2019-10-22 17:24] VITALS: BMI 19.5
[2019-10-22] MEDS: metroNIDAZOLE 500 MG/ISO 100ML 500 MG/100 ML BAG 100 MG IVPB (17:39)
[2019-10-22 17:57] LABS: Thyroid Stimulating Hormone Reflex 0.781 uIU/mL (0.465-4.68)
[2019-10-22 22:00] VITALS: BP 94/40; PULSE 86; RESP 12; TEMP 36.3; O2SAT 100
--- NOTE | 2019-10-22 22:51 | PM.IMHP ---
H&P: HPI History of Present Illness Chief complaint: aspiration/muscular dystrophy/increasing weakness Narrative: Domenic Min is a 74 year old male who has a history of muscular dystrophy. The patient was admitted here on 08/26/2019 with acute respiratory failure and hypoxia. Generalized weakness at that time. He was treated for pneumonia at that time. The patient was also found to have an arachnoid cyst 4.4 x 3.3 fluid attenuation mass in the left middle cerebral fossa with mass effect on the temporal lobe. The patient was transferred to [facility] at that time. He was seen by a neurosurgeon. Upon discharge it was recommended that the patient has a follow-up MRI in 1-2 years to see if there has been any change. Patient also had a left thoracentesis of 60 cc while he was at [facility]. Patient was discharged back to home on 09/24/2019 from [facility]. He also had a Lexiscan while he was at [facility] and is EF is approximately 41%. He was told to stop taking naproxen. The patient came in today because of increasing weakness. Is noted that the patient has been treated for aspiration pneumonia for several occasions. The patient is a DNI DNR. The was here earlier and stated that his blood pressures been running low. He usually talks easily and is on a pureed diet. The patient had cream of wheat with mashed potatoes this morning for breakfast. He got showed well trying to swallow this and had a coughing episode. The patient was started on Zosyn and Flagyl. The told the ER provider that she was having difficulty caring for the patient patient cannot walk in falls frequently during transfers. Patient is being treated for possible aspiration pneumonia and for rehab due to his frequent falls and weakness. EKG was read as sinus rhythm first-degree AV block left bundle-branch block. Abdominal CT right nephrolithiasis and cholelithiasis. Chest x-ray was read as left basilar segmental or subsegmental atelectasis. Pleural blunting possible small pleural effusions. Date of service 10/22/2019 Review of Systems Review of Systems: All systems reviewed & are unremarkable except as noted in HPI and below Constitutional: Constitutional: Reports as per HPI and Reports no additional constitutional complaints Eyes: Eyes: Reports as per HPI and Reports no additional eye complaints ENT: Reports system reviewed and no additional complaints, except as documented and Reports Normal hearing present Cardiovascular: Cardiovascular: Reports no additional cardiovascular complaints Respiratory: Respiratory: Reports no additional respiratory complaints and Reports no additional respiratory complaints Gastrointestinal: Gastrointestinal: Reports as per HPI and Reports no additional gastrointestinal complaints Musculoskeletal: Musculoskeletal: Reports no additional musculoskeletal complaints Integumentary/Breasts: Skin/Breast: Reports system reviewed and no additional complaints, except as docu and Reports as per HPI Neurologic: Reports system reviewed and no additional complaints, except as documented, Reports as per HPI and Reports Normal hearing present Psychiatric: Psychiatric: Reports no additional psychiatric complaints and Reports as per HPI Endocrine: Endocrine: Reports no additional endocrine complaints Hematologic/Lymphatic: Hematologic/Lymphatic: Reports no additional hematologic/lymphatic complaints Allergic/Immunologic: Allergic/Immunologic: Reports no additional allergic/immunologic complaints [facility] Past Medical History Medical History (Updated 10/22/19 @ 23:03 by Holly West NP) Arachnoid cyst Fluid attenuation mass measuring 4.4 x 3.3 cm left middle cranial fossa, consistent with arachnoid cyst on brain CT 08/26/2019. Calculus of gallbladder without cholecystitis without obstruction Glaucoma Macular degeneration, age related, exudative Mixed hyperlipidemia Myotonic muscular dystr
[2019-10-22] MEDS: SODIUM CHLORIDE 0.9% IV 1,000 ML 100 ML IV CONT (23:21)
[2019-10-22] MEDS: ASPIRIN 81 MG ENTERIC TABLET PO (23:43)
[2019-10-22] MEDS: LORATADINE 10 MG TABLET PO (23:43)
[2019-10-23 02:00] VITALS: BP 131/57; PULSE 57; RESP 12; TEMP 36.6; O2SAT 100
[2019-10-23 05:44] LABS: Basophils Percent Auto 0.5 % (0.2-1.2); Eosinophils Absolute Auto 0.2 K/mm3 (0-0.3); Eosinophils Percent Auto 3.5 % (0-4.4); Hematocrit 33.5 % (42.0-52.0); Hemoglobin 10.3 g/dL (14.0-18.0); Immature Granulocyte Absolute 0.02 K/mm3 (0.00-0.031); Immature Granulocyte Percent A 0.5 % (0-0.5); Lymphocytes Absolute Auto 1.05 K/mm3 (0.9-3.2); Lymphocytes Percent Auto 24.7 % (18.3-44.2); Mean Corpuscular HGB Conc 30.7 g/dl (32-36); Mean Corpuscular Hemoglobin 31.2 pg (26-34); Mean Corpuscular Volume 101.5 fl (80-100); Mean Platelet Volume 11.6 fl (7.4-10.4); Monocytes Absolute Auto 0.4 K/mm3 (0.1-0.6); Monocytes Percent Auto 10.4 % (2.6-8.5); Neutrophils Absolute Auto 2.6 K/mm3 (1.3-6.7); Neutrophils Percent Auto 60.4 % (45.5-73.1); Platelet Count Result 118 k/mm3 (150-375); Red Cell Distribution Width 14.2 % (11.5-14.5); White Blood Count 4.3 K/mm3 (4.5-10.0)
[2019-10-23 06:00] VITALS: BP 119/60; PULSE 59; RESP 12; TEMP 36.7; O2SAT 98
[2019-10-23 06:03] LABS: Alanine Aminotransferase 80 U/L (4-50); Albumin Level 2.8 g/dL (3.5-5.1); Alkaline Phosphatase 198 U/L (38-126); Aspartate Amino Transferase 105 U/L (17-59); Bilirubin,Total 0.2 mg/dL (0.2-1.3); Blood Urea Nitrogen 24 mg/dL (9-20); CRP < 0.5 mg/dL (<1.0); Calcium 8.8 mg/dL (8.4-10.2); Carbon Dioxide 32 mmol/L (22-30); Chloride 108 mmol/L (98-107); Estimated CRCL calculation 55 ml/min; Estimated Glomerular Filt Rate > 60; Glucose 90 mg/dL (75-110); Potassium 4.6 mmol/L (3.4-5.0); Sodium 141 mmol/L (137-145)
[2019-10-23 06:04] LABS: Lactic Acid 0.7 mmol/L (0.7-2.1)
[2019-10-23] MEDS: CHOLECALCIFEROL 1,000 UNIT TABLET 1000 UNITS PO (08:50)
[2019-10-23] MEDS: CYANOCOBALAMIN 1,000 MCG TABLET 1000 MCG PO ×2 (08:50→16:38)
[2019-10-23] MEDS: DOCUSATE SODIUM 100 MG CAPSULE PO (08:50)
[2019-10-23] MEDS: FOLIC ACID 1 MG TABLET PO (08:50)
[2019-10-23] MEDS: GABAPENTIN 100 MG CAPSULE PO ×3 (08:50→16:38)
[2019-10-23] MEDS: TIMOLOL MALEATE 0.25% OP SOLN 5 ML BOTTLE 1 DROP EACH EYE (08:54)
[2019-10-23] MEDS: SODIUM CHLORIDE 0.9% IV 1,000 ML 100 ML IV CONT (11:14)
[2019-10-23 11:43] VITALS: BMI 19.5
[2019-10-23] MEDS: OMEGA 3 POLYUNSAT FATTY ACIDS 1 GM CAP PO (11:59)
--- NOTE | 2019-10-23 12:52 | PM.IMPN ---
Progress Note: A&P Assessment and Plan (1) Aspiration into airway: Qualifiers: Encounter type: initial encounter Qualified Code(s): T17.908A - Unspecified foreign body in respiratory tract, part unspecified causing other injury, initial encounter Code(s): T17.908A - Unspecified foreign body in respiratory tract, part unspecified causing other injury, initial encounter Status: Acute Assessment and Plan: The patient had a witnessed coughing episode after eating cream of wheat yesterday morning (10/22/19). CXR revealed left basilar segmental atelectasis and pleural blunting with possible small pleural effusions. Plan to continue IV zosyn for now and monitor closely. He is afebrile. WBC is low at 4,300 with a normal differential. Clinically, he does not appear to have acute pneumonia but he is at high risk for recurrent aspiration due to his dysphagia and he has expressed that he would like to consider palliative care as he does not want a feeding tube and would prefer to avoid recurrent hospitalizations for aspiration pneumonia. I have consulted care coordination for a hospice consult. Speech therapy evaluation is pending. 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 His recently asked his daughter pick him up last (10/15/19) from rehab in [place] as she did not want him so far away from home. She is unable to care for him at home and would like to consider intermediate placement. The patient expresses that while he would like to be home, he understands that his needs are increasing and he knows he needs more assistance. He understands the risks of aspiration due to his dysphagia from his muscular dystrophy and does not want to pursue a feeding tube. He clearly states that he is DNR/DNI. He is A&Ox4. He expresses that he would like to meet with hospice to discuss palliative care. I placed a care coordination consult for a hospice consult. He is currently NPO and is awaiting speech therapy evaluation for further recommendations regarding the best diet for him moving forward. (3) Arachnoid cyst: Code(s): G93.0 - Cerebral cysts Status: Chronic Assessment and Plan: The patient was evaluated at [facility] and was advised to follow-up for MRI in 1-2 years to see if there has been any changes. (4) Macular degeneration, age related, exudative: Code(s): H35.3290 - Exudative age-related macular degeneration, unspecified eye, stage unspecified Status: Chronic Assessment and Plan: Chronic. Continue timolol drops. (5) Mixed hyperlipidemia: Code(s): E78.2 - Mixed hyperlipidemia Status: Chronic Assessment and Plan: LFTs were reviewed and are mildly elevated. Will hold krill oil omega-3 and atorvastatin. Continue to monitor. (6) DVT prophylaxis: Code(s): Z29.9 - Encounter for prophylactic measures, unspecified Status: Acute Assessment and Plan: Continue SCDs. Time Spent With Patient Time with patient: 15 - 25 minutes Subjective Date/time seen: 10/23/19 12:52 Interval history: Mr. Min is seen and examined at bedside in follow-up for ongoing dysphagia/aspiration issues due to his muscular dystrophy with concern for possible aspiration pneumonia and inability for his to care for him at home. I had a long discussion with the patient at the bedside and the patient's over the phone. He reports ongoing issues with dysphagia and notes that it continues to worsen. He realizes the risks associated with aspiration and he has already decided that he is not interested in pursuing a feeding tube and he has expressed that he wants to be DNR/DNI. I discussed comfort care with the patient and his and they would like to meet with the hospice team together. He
[2019-10-23 14:00] VITALS: BP 105/52; PULSE 52; RESP 14; TEMP 36.5; O2SAT 99
[2019-10-23] MEDS: polyethylene glycoL 3350 17 GM POWD.PACK PO (14:50)
--- NOTE | 2019-10-23 15:32 | PCOTNOTE ---
Attempted OT evaluation at this time, but RN advised to wait as hospice in room with patient. Will follow up tomorrow.
[2019-10-23 20:00] VITALS: BP 95/53; PULSE 84; RESP 18; TEMP 36.3; O2SAT 95
[2019-10-23] MEDS: LORATADINE 10 MG TABLET PO (21:15)
[2019-10-23] MEDS: ASPIRIN 81 MG ENTERIC TABLET PO (21:15)
[2019-10-24] MEDS: SODIUM CHLORIDE 0.9% IV 1,000 ML 65 ML IV CONT (00:02)
[2019-10-24 04:00] VITALS: BP 115/73; PULSE 97; RESP 20; TEMP 36.6; O2SAT 100
[2019-10-24 06:22] LABS: Hematocrit 35.2 % (42.0-52.0); Hemoglobin 10.8 g/dL (14.0-18.0); Immature Platelet Fraction Pct 3.7 % (0.9-11.2); Mean Corpuscular HGB Conc 30.7 g/dl (32-36); Mean Corpuscular Hemoglobin 30.7 pg (26-34); Platelet Count Result 119 k/mm3 (150-375); Red Blood Count 3.52 M/mm3 (4.6-6.20); Red Cell Distribution Width 14.1 % (11.5-14.5); White Blood Count 3.4 K/mm3 (4.5-10.0)
[2019-10-24 06:34] LABS: Alanine Aminotransferase 112 U/L (4-50); Alkaline Phosphatase 206 U/L (38-126); Aspartate Amino Transferase 116 U/L (17-59); Bilirubin,Total 0.3 mg/dL (0.2-1.3); Blood Urea Nitrogen 14 mg/dL (9-20); Calcium 9.1 mg/dL (8.4-10.2); Carbon Dioxide 31 mmol/L (22-30); Chloride 112 mmol/L (98-107); Estimated CRCL calculation 49 ml/min; Estimated Glomerular Filt Rate > 60; Glucose 96 mg/dL (75-110); Potassium 4.3 mmol/L (3.4-5.0); Sodium 144 mmol/L (137-145)
[2019-10-24] MEDS: FOLIC ACID 1 MG TABLET PO (08:44)
[2019-10-24] MEDS: GABAPENTIN 100 MG CAPSULE PO ×3 (08:44→16:14)
[2019-10-24] MEDS: DOCUSATE SODIUM 100 MG CAPSULE PO (08:44)
[2019-10-24] MEDS: CYANOCOBALAMIN 1,000 MCG TABLET 1000 MCG PO ×2 (08:45→16:14)
[2019-10-24] MEDS: polyethylene glycoL 3350 17 GM POWD.PACK PO (08:45)
[2019-10-24] MEDS: TIMOLOL MALEATE 0.25% OP SOLN 5 ML BOTTLE 1 DROP EACH EYE (08:45)
[2019-10-24] MEDS: CHOLECALCIFEROL 1,000 UNIT TABLET 1000 UNITS PO (08:45)
[2019-10-24 14:00] VITALS: BP 112/51; PULSE 62; RESP 18; TEMP 36; O2SAT 98
--- NOTE | 2019-10-24 14:06 | PM.IMPN ---
Progress Note: A&P Assessment and Plan (1) Aspiration into airway: Qualifiers: Encounter type: initial encounter Qualified Code(s): T17.908A - Unspecified foreign body in respiratory tract, part unspecified causing other injury, initial encounter Code(s): T17.908A - Unspecified foreign body in respiratory tract, part unspecified causing other injury, initial encounter Status: Acute Assessment and Plan: The patient had a witnessed coughing episode after eating cream of wheat the morning of 10/22/19. CXR revealed left basilar segmental atelectasis and pleural blunting with possible small pleural effusions. IV zosyn was initiated. Plan to switch to PO augmentin. He is afebrile. WBC is low at 3,400. Differential revealed elevated monocytes 10/22. Clinically, he does not appear to have acute pneumonia but he is at high risk for recurrent aspiration due to his dysphagia. He has opted for palliative care as he does not want a feeding tube and would prefer to avoid recurrent hospitalizations for aspiration pneumonia. He met with TEE yesterday and again today with his present. They have elected to proceed with home hospice and signed the paperwork today. His is going to get everything things ready for him to come home. 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 His recently asked his daughter pick him up last (10/15/19) from rehab in [place] as she did not want him so far away from home. She brought him back to the ED as she did not feel she could care for him at home herself. The patient's muscular dystrophy continues to progress and he is having swallowing dysfunction and lower extremity weakness resulting in falls. He and his are adamant that they do not want to proceed with feeding tube placement. He and his have decided to proceed with hospice and palliative care and he will go home on hospice. (3) Arachnoid cyst: Code(s): G93.0 - Cerebral cysts Status: Chronic Assessment and Plan: The patient was evaluated at [facility] and was advised to follow-up for MRI in 1-2 years to see if there has been any changes. (4) Macular degeneration, age related, exudative: Code(s): H35.3290 - Exudative age-related macular degeneration, unspecified eye, stage unspecified Status: Chronic Assessment and Plan: Chronic. Continue timolol drops. (5) Mixed hyperlipidemia: Code(s): E78.2 - Mixed hyperlipidemia Status: Chronic Assessment and Plan: LFTs were reviewed and are mildly elevated. Will hold krill oil omega-3 and atorvastatin. Continue to monitor. (6) DVT prophylaxis: Code(s): Z29.9 - Encounter for prophylactic measures, unspecified Status: Acute Assessment and Plan: Continue SCDs. Subjective Date/time seen: 10/24/19 14:06 Interval history: Mr. Min is seen and examined at bedside in follow-up for ongoing dysphagia/aspiration issues due to his muscular dystrophy with concern for possible aspiration pneumonia. The patient and his decided that they would like to move forward with hospice/palliative care. The patient also decided that he wanted to resume his purred diet yesterday evening. I saw the patient with his , Dawit Min, and the hospice team and the bedside. He is doing well today. He is tolerating his pureed diet without difficulty. He and his decided that he will go home with hospice when he is ready. He has not had a bowel movement yet but he is passing gas. He believes that his last bowel movement was several days ago. His is concerned and would like him to have a bowel movement before coming home. He reports occasional cough but denies subjective fever, chills, and dyspnea. He denies nausea and vomiting. He denie
--- NOTE | 2019-10-24 15:40 | PCOTNOTE ---
Pt declined therapy today; just signed hospice papers and said he was feeling worn out. Stated he would like to try tomorrow. Will re-attempt.
[2019-10-24 17:28] LABS: SARS-CoV-2 RNA PCR Negative
[2019-10-24] MEDS: LORATADINE 10 MG TABLET PO (21:02)
[2019-10-24] MEDS: ASPIRIN 81 MG ENTERIC TABLET PO (21:02)
[2019-10-24] MEDS: AMOXICILLIN/CLAVULANATE K 875-125 MG TAB 1 TABLET PO (21:02)
[2019-10-24 21:46] VITALS: BP 129/57; PULSE 58; RESP 12; TEMP 36.7; O2SAT 95
[2019-10-25 05:42] VITALS: BP 122/58; PULSE 87; RESP 16; TEMP 36.6; O2SAT 97
[2019-10-25] MEDS: DOCUSATE SODIUM 100 MG CAPSULE PO (08:30)
[2019-10-25] MEDS: GABAPENTIN 100 MG CAPSULE PO ×3 (08:30→16:21)
[2019-10-25] MEDS: TIMOLOL MALEATE 0.25% OP SOLN 5 ML BOTTLE 1 DROP EACH EYE (08:30)
[2019-10-25] MEDS: CHOLECALCIFEROL 1,000 UNIT TABLET 1000 UNITS PO (08:30)
[2019-10-25] MEDS: polyethylene glycoL 3350 17 GM POWD.PACK PO (08:30)
[2019-10-25] MEDS: AMOXICILLIN/CLAVULANATE K 875-125 MG TAB 1 TABLET PO (08:30)
[2019-10-25] MEDS: CYANOCOBALAMIN 1,000 MCG TABLET 1000 MCG PO ×2 (08:30→16:21)
[2019-10-25] MEDS: FOLIC ACID 1 MG TABLET PO (08:30)
[2019-10-25] MEDS: LACTULOSE ENEMA 200 GM/1,000 ML ENEMA RECTAL (09:45)
--- NOTE | 2019-10-25 10:59 | PCPTNOTE ---
Patient refused treatment this session due to just receiving an enema.
--- NOTE | 2019-10-25 11:06 | PCOTNOTE ---
Attempted OT eval at 11:00 AM; pt stated he had just received an enema and did not want to complete therapy at this time. He said he might be willing later in the day. Will re-attempt.
[2019-10-25 14:00] VITALS: BP 110/48; PULSE 58; RESP 16; TEMP 36.1; O2SAT 95
--- NOTE | 2019-10-25 14:18 | PCOTNOTE ---
Attempted pt for OT eval x2; patient stated he just had an enema and did not want to do therapy. He was continuing to have issues from the enema in the afternoon per RN (14:05). Pt is to go home on Hospice today or tomorrow; group rooms coordinator and RN said no eval necessary at this time.
--- NOTE | 2019-10-25 15:32 | PM.DS ---
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 Min is a 74 y.o. male with PMH significant for myotonic muscular dystrophy who presented to the emergency department 10/22/19 with increasing weakness. He has a history of recurrent aspiration pneumonia. His reported that he had cream of wheat and mashed potatoes for breakfast the morning of 10/22/19. She reported that he started coughing after eating. She also reported that she did not feel she could care for him at home any longer due to his progression in his lower extremity weakness. Initial workup in the ED revelaed WBC 5,100, Hb 11.8, Hct 38.2, MCV 101.3, chloride 109, BUN 21, ALP 214, AST 48, ALT 50, and AST 48. CXR was performed and revealed left basilar segmental or subsegmental atelectasis and pleural blunting with possible small effusions. Abdominal xray revealed right nephrolithiasis and cholelithiasis with a nonobstructive bowel gas pattern and moderate colonic fecal loading. The patient was treated with IV antibiotics for possible aspiration pneumonia and admitted to the hospitalist service for further evaluation. I had a long discussion with the patient and his . He is a high risk for recurrent aspiration and aspiration pneumonia due to his dysphagia from his myotonic muscular dystrophy. He and his adamantly refused feeding tube placement and he opted for palliative care and hospice consult. They decided on home hospice after discussing options with TEE. He was discharged on the afternoon of 10/25/19 with [facility] hospice. His medications will be adjusted per TEE at discharge. Status at Discharge Functional status at discharge: uses cane/walker Overall status at discharge: patient is back to baseline Time Spent with Patient Time attestation: Total time spent providing and/or coordinating discharge services: 30 minutes Exam Narrative: Exam Narrative: Vitals at presentation: Temp Pulse Resp BP Pulse Ox 98.2 F 71 20 101/61 97 10/22/19 14:15 10/22/19 14:15 10/22/19 14:15 10/22/19 14:15 10/22/19 14:15 Vitals at discharge: Temp Pulse Resp BP Pulse Ox 97.0 F L 58 L 16 110/48 L 95 10/25/19 14:00 10/25/19 14:00 10/25/19 14:00 10/25/19 14:00 10/25/19 14:00 General: Pleasant, chronically ill-appearing, and frail 74 y.o. male lying in the semi-recumbent position in bed in no acute distress. His and the hospice nurse are at the bedside at the time of my visit. HEENT: Normocephalic and atraumatic. Corrective lenses in place. EOMI. Moist mucous membranes. Neck: Supple. No lymphadenopathy or masses. Cardiac: Regular rate and rhythm. S1
--- NOTE | 2019-10-25 15:45 | PCPTNOTE ---
Patient refused treatment this session due to his stomach bothering him.
== END 2019-10-25 17:15 | disposition hospice, home (50) ==
LOC: ANHED 16:00 → ANH2MED 16:25
PROVIDERS: General Practice; Nurse Practitioner; Admitting Provider Family Medicine; Emergency Provider Emergency Medicine; PCP Internal Medicine; Visit Provider Physician Assistant
DX: T17.908A Unspecified foreign body in respiratory tract, part unspecified causing other injury, initial encounter (principal); G71.11 Myotonic muscular dystrophy; G93.0 Cerebral cysts; H35.3290 Exudative age-related macular degeneration, unspecified eye, stage unspecified; E78.2 Mixed hyperlipidemia; Z66 Do not resuscitate; Z11.59 Encounter for screening for other viral diseases; R06.00 Dyspnea, unspecified; K59.00 Constipation, unspecified; Z79.82 Long term (current) use of aspirin; Z79.899 Other long term (current) drug therapy; Z87.01 Personal history of pneumonia (recurrent); Z87.891 Personal history of nicotine dependence; Z98.42 Cataract extraction status, left eye; Z98.41 Cataract extraction status, right eye
CPT/HCPCS: 36415; 36600; 71046; 74018; 80053; 81001; 82805; 83605; 83880; 84443; 85025; 85027; 85055; 86140; 87040; 87086; 87088; 87635; 92526; 92610; 93005; 96361; 96365; 96366; 96367; 97162; 99285; A9270; C9803; G0378; J2543; J7030; U0003